=== PATIENT | male | born 1945 | race Caucasian/White ===

== ENCOUNTER 2017-01-22 08:46 | Emergency (ER) | payer SELFPAY ==
[~2017-01-22] VITALS: Ht 177.8 cm; Wt 56.8 kg
[2017-01-22 08:48] VITALS: Ht 177.8 cm; Wt 56.8 kg
[2017-01-22] MEDS ORDERED: IBUPROFEN 600 MG TAB PO ONE (09:30)
[2017-01-22] MEDS ORDERED: HYDROCODONE/APAP (5/325) TAB PO ONE (09:30)
--- NOTE | 2017-01-22 09:58 | RADRPT ---
PROCEDURE: XR Chest. CLINICAL INDICATION: Chest pain. Left rib pain. TECHNIQUE: Single frontal view. COMPARISON: None. FINDINGS: The lungs are clear. The heart size is normal. There is no pleural effusion. There is no pneumothorax. IMPRESSION: 1. Normal chest radiograph. RPTAT: QQ .Erick Garcia MD, MD Date Time Electronically viewed and signed by .Erick Garcia MD, MD on 01/22/2017 09:58 .R/
[2017-01-22] MEDS ORDERED: IBUP-1542 PO (10:02)
[2017-01-22 10:55] VITALS: BP 115/72; PULSE 80; RESP 18; TEMP 98.4
--- NOTE | 2017-01-22 15:49 | ERD ---
ER Documentation Chief Complaint Date/Time DATE: 01/22/17 TIME: 15:46 Chief Complaint BROUGHT IN VIA EMS WITH LEFT RIB PAIN DUE TO FALL HPI 71-year-old male brought in by ambulance for left rib pain after a fall last night. He states he was walking on the street and tripped over a rock and fell onto his left side. He has been having sharp stabbing, 10 out of 10 pain in the left-sided ribs. Pain is nonradiating. Worse with any type of movement or deep breathing. Nothing makes it better. No associated shortness of breath, fevers, chills, chest pain, cough, or hemoptysis. He denies any associated abdominal pain. ROS All systems reviewed and are negative except as per history of present illness. Medications Home Meds Active Scripts Ibuprofen* (Motrin*) 600 Mg Tab, 600 MG PO Q6H Y for PAIN AND OR ELEVATED TEMP, #30 TAB Prov:JAZLYN LAWLER MD 01/22/17 Allergies Allergies: Coded Allergies: No Known Allergy (Unverified , 01/22/17) PMhx/Soc Medical and Surgical Hx: pt denies Medical Hx, pt denies Surgical Hx Hx Alcohol Use: No Hx Substance Use: No Hx Tobacco Use: No Smoking Status: Never smoker FmHx Family History: No diabetes Physical Exam Vitals Vital Signs Date Time Temp Pulse Resp B/P Pulse Ox O2 Delivery O2 Flow Rate FiO2 01/22/17 10:55 98.4 80 18 115/72 98 Room Air 01/22/17 08:48 98.4 90 20 112/72 98 Physical Exam Const: Appears to be in distress secondary to pain, nontoxic, unkempt, dirty clothing Head: Atraumatic Eyes: Normal Conjunctiva ENT: Normal External Ears, Nose and Mouth. Neck: Full range of motion..~ No meningismus. Resp: Clear to auscultation bilaterally, no crepitus to palpation of chest, tenderness to palpation of left lateral lower ribs without deformities Cardio: Regular rate and rhythm, no murmurs Abd: Soft, non tender, non distended. Normal bowel sounds Skin: No petechiae or rashes Back: No midline or flank tenderness Ext: No cyanosis, or edema Neur: Awake and alert Psych: Normal Mood and Affect Results 24 hrs Current Medications Medications (Trade) Dose Ordered Sig/Alen Route PRN Reason Start Time Stop Time Status Last Admin Dose Admin Acetaminophen/ Hydrocodone Bitart (Bradford (5/325)) 1 tab ONCE ONCE PO 01/22/17 09:30 01/22/17 09:31 DC 01/22/17 09:48 Ibuprofen (Motrin) 600 mg ONCE ONCE PO 01/22/17 09:30 3 09:31 DC 01/22/17 09:48 Procedures/MDM Patient is presenting with signs and symptoms of a possible rib contusion versus rib fracture. His vitals are normal and he has no hypoxia. Chest x-ray did not show any acute fractures, pneumothorax, or effusions. Patient was given Bradford and ibuprofen for the pain with significant improvement. He was able to ambulate and take deep breaths without difficulty. He remained hemodynamically stable. I discussed the results with the patient. I will discharge him with ibuprofen for his pain. Return precautions were discussed. Departure Diagnosis: Primary Impression: Rib injury Condition: Stable Patient Instructions: Rib Contusion Referrals: [facility] YOU HAVE RECEIVED A MEDICAL SCREENING EXAM AND THE RESULTS INDICATE THAT YOU DO NOT HAVE A CONDITION THAT REQUIRES URGENT TREATMENT IN THE EMERGENCY DEPARTMENT. FURTHER EVALUATION AND TREATMENT OF YOUR CONDITION CAN WAIT UNTIL YOU ARE SEEN IN YOUR DOCTORS OFFICE WITHIN THE NEXT 1-2 DAYS. IT IS YOUR RESPONSIBILITY TO MAKE AN APPOINTMENT FOR FOLOW-UP CARE. IF YOU HAVE A PRIMARY DOCTOR --you should call your primary doctor and schedule an appointment IF YOU DO NOT HAVE A PRIMARY DOCTOR YOU CAN CALL OUR PHYSICIAN REFERRAL HOTLINE AT IF YOU CAN NOT AFFORD TO SEE A PHYSICIAN YOU CAN CHOSE FROM THE FOLLOWING [facility] [address] [facility] [facility]. [facility] [address] [facility] [facility] [address] [facility] [facility] [address] [facility]. [facility] [address] [facility]. [facility]. [address] MD Jan 22, 2017 15:48
== END 2017-01-22 11:40 | disposition home or self-care (01) ==
LOC: E/R 08:46
DX: S29.001A Unspecified injury of muscle and tendon of front wall of thorax, initial encounter (principal); R40.2142 Coma scale, eyes open, spontaneous, at arrival to emergency department; R40.2252 Coma scale, best verbal response, oriented, at arrival to emergency department; R40.2362 Coma scale, best motor response, obeys commands, at arrival to emergency department; R07.9 Chest pain, unspecified; W01.0XXA Fall on same level from slipping, tripping and stumbling without subsequent striking against object, initial encounter; Y92.410 Unspecified street and highway as the place of occurrence of the external cause
CPT/HCPCS: 71010